=== PATIENT | female | born 1985 | race Caucasian/White ===

== ENCOUNTER 2018-08-20 13:47 | Inpatient (IN) ==
[2018-08-20] MEDS ORDERED: LIDOCAINE HCL 50 ML VIAL PERI PRN (14:13)
[2018-08-20] MEDS ORDERED: ONDANSETRON HCL/PF 2 MG/ML VIAL IV PRN (14:13)
[2018-08-20] MEDS ORDERED: PENICILLIN G POTASSIUM 5 MILLIONUNT in DEXTROSE 5 % IN WATER 100 ML IV ONE ×2 (14:13)
[2018-08-20] MEDS ORDERED: RINGER'S SOLUTION,LACTATED 1,000 ML IV ONE (14:13)
[2018-08-20] MEDS ORDERED: NALBUPHINE HCL 10 MG/ML AMPUL IV PRN ×2 (14:13)
[2018-08-20] MEDS ORDERED: RINGER'S SOLUTION,LACTATED 1,000 ML IV PRN (14:13)
--- NOTE | 2018-08-20 16:03 | HP ---
Chief Complaint - Chief Complaint Date of Service: 08/20/18 Time of Service: 16:01 Chief Complaint: Labor History of Present Illness: The patient presents to labor and delivery complaining of regular contractions. She denies vb or lof. Fetus is active. Medical History (Last Reviewed 05/19/18 @ 14:55 by Ernie Baldwin RN) Asthma Nausea Needle phobia and not yet delivered Onset Date: 02/16/18 Vegetarian diet [place] teeth extracted Onset Date: 2011 Family History: Family History (Last Reviewed 05/19/18 @ 14:55 by Ernie Baldwin RN) Grandmother Myocardial infarction Social History: Preferred Language Ghanaian (Last Updated 08/19/18 @ 08:50 by Martita Helm MD) No Social History Section defined Review Of Systems (GEN) - Review of Systems Misc: All systems neg except as marked Allergies/Adverse Reactions: Allergies Allergy/AdvReac Type Severity Reaction Status Date / Time No Known Drug Allergies Allergy Verified 08/20/18 13:51 Home Medications: HOME MEDICATIONS albuterol sulfate HFA 90 mcg/actuation aerosol inhaler See Rx Instructions IH Q6H PRN 04/15/18 [Last Taken Unknown] vitamin B12 500 mcg-folic acid 400 mcg tablet 1 tab PO DAILY 04/15/18 [Last Taken Unknown] Vits96/Iron Fum/Folic [ S] 1 tab PO DAILY 08/20/18 [Last Taken Unknown] Exam - Exam Vital Signs: Vital Signs - Last Taken Temp 36.5 C 08/20/18 15:03 Pulse 110 H 08/20/18 15:03 Resp 18 08/20/18 15:03 BP 124/77 08/20/18 15:03 Pulse Ox 100 08/20/18 15:03 Constitutional: Present: Alert, Oriented x3, Cooperative, No distress Respiratory: Present: chest non-tender, lungs clear, normal breath sounds Cardiovascular/Chest: Present: normal peripheral pulses, regular rate, rhythm, no murmur Abdomen: Present: soft, nontender, nondistended Extremity: Present: normal range of motion, non-tender, normal inspection, no calf tenderness, pedal edema Skin Exam: Present: normal color, warm/dry, no cyanosis Appearance: Present: appropriate appearance Eye contact: Present: cooperative Thoughts: Present: normal thought pattern Diagnostic Studies: Laboratory Results Blood Type A Negative 08/20/18 14:20 Antibody Screen Negative 08/20/18 14:20 Assessment/Plan - Narrative Narrative: 32 yo @ 37w 3d Admit for active labor. The patient has a history of short labors and has made cervical change GBS prophylaxis due to GBS positive status FHT is cat 1
[2018-08-20 17:38] LABS: Cocaine Ur Negative (NEGATIVE); Urine Barbiturate Negative (NEGATIVE); Urine Benzodiazepines Negative (NEGATIVE); Urine Opiates Negative (NEGATIVE); Urine PCP Negative (NEGATIVE); Urine THC Negative (NEGATIVE)
[2018-08-20] MEDS: PENICILLIN G POTASSIUM 2.5 MILLIONUNT in DEXTROSE 5 % IN WATER 100 ML IV SCH ×4 (18:31→23:13)
--- NOTE | 2018-08-20 18:40 | PN ---
Progess Note - Interim Date: 08/20/18 Time: 18:38 Narrative: 08/20/18 18:38 Pt reports her ctx are getting stronger and closer together and she has a history of short labors First dose of antibiotics in AROM for augmentation of labor, clear fluid cvx /-2 Anticipate
[2018-08-20] MEDS ORDERED: OXYTOCIN/DEXTROSE 5%-WATER 30 UNITS/500 ML BAG IV ONE ×2 (21:39→22:14)
[2018-08-20] MEDS ORDERED: GLYCERIN/WITCH HAZEL LEAF 40 APPL BOX TP PRN (22:14)
[2018-08-20] MEDS ORDERED: BENZOCAINE/MENTHOL 81 SPRAY CAN TP PRN (22:14)
[2018-08-20] MEDS ORDERED: BISACODYL 10 MG SUPP.RECT RC PRN (22:14)
[2018-08-20] MEDS ORDERED: diphenhydrAMINE HCL 25 MG CAPSULE PO PRN (22:14)
[2018-08-20] MEDS ORDERED: oxyCODONE HCL/ACETAMINOPHEN 1 TAB TABLET PO PRN ×2 (22:14)
[2018-08-20] MEDS ORDERED: HYDROCORTISONE 30 APPL TUBE TP PRN (22:14)
[2018-08-20] MEDS ORDERED: SENNOSIDES 8.6 MG TABLET PO PRN (22:14)
--- NOTE | 2018-08-20 22:20 | OR ---
Operative Report - Dictated Report Narrative: Date of delivery: 08/20/2018 Time of delivery: 2202 Gender: male weight: 3051 grams APGARS 9/9 The patient presented to labor and delivery in active labor. She was augmented with AROM and progressed to complete dilation. She delivered a viable male infant over an intact perineum. The baby had a compound presentation presenting vertex with one hand over the head. Delivery was in the RADHA presentation. Cord clamping was delayed for 60 seconds. The placenta was delivered by expression and appeared intact. A left periurethral laceration was noted which was hemostatic and thus not repaired. EBL: 100 mL Lacerations: left periurethral Complications: none Definition: * The number of deliveries resulting in a live the patient experienced prior to current hospitalization * The previous delivery of live twins or any live multiple gestation is considered one live event. *If primagravida or nulliparous is documented select zero for the number of previous live births. Live Births: 2
[2018-08-21] MEDS: IBUPROFEN 800 MG TABLET PO PRN ×3 (00:14→14:47)
[2018-08-21] MEDS: DOCUSATE SODIUM 100 MG CAPSULE PO SCH ×2 (08:02→20:56)
--- NOTE | 2018-08-21 11:21 | PN ---
Subjective - Date and Time Seen Date: 08/21/18 Time: 11:18 Subjective Narrative: Pt reports her vaginal bleeding is normal. No other complaints. Objective Objective Narrative: See vital signs - Review of Systems Generalized/Overall Review: Reports: No Symptoms Reported Misc: All systems neg except as marked - Vitals Vitals: Last Vital Signs Temp 36.6 C 08/21/18 07:41 Pulse 88 08/21/18 07:41 Resp 16 08/21/18 07:41 BP 114/82 08/21/18 07:41 Pulse Ox 100 08/21/18 07:41 - Exam Constitutional: Present: Alert, Oriented x3, Cooperative, No distress Cardiovascular/Chest: Present: regular rate, rhythm, no murmur Abdomen: Present: soft, nontender, nondistended - fundus is firm Extremity: Present: non-tender, no calf tenderness Skin Exam: Present: normal color, warm/dry, no cyanosis Appearance: Present: appropriate appearance Eye contact: Present: cooperative Thoughts: Present: normal thought pattern Assessment/Plan Plan Narrative: PPD 1 s/p Doing well PP tubal tomorrow Discharge tomorrow
[2018-08-21] MEDS: PENICILLIN G POTASSIUM 2.5 MILLIONUNT in DEXTROSE 5 % IN WATER 100 ML IV SCH ×4 (19:26→19:27)
[2018-08-22] MEDS ORDERED: RINGER'S SOLUTION,LACTATED 1,000 ML IV PRN (06:00)
[2018-08-22 06:44] VITALS: BP 120/79
--- NOTE | 2018-08-22 10:20 | PN ---
Subjective - Date and Time Seen Date: 08/22/18 Time: 10:17 Subjective Narrative: Pt reports her vaginal bleeding is normal. No other complaints. Objective Objective Narrative: See vital signs - Review of Systems Generalized/Overall Review: Reports: No Symptoms Reported Misc: All systems neg except as marked - Vitals Vitals: Last Vital Signs Temp 36.6 C 08/22/18 06:39 Pulse 92 08/22/18 06:39 Resp 18 08/22/18 06:39 BP 120/79 08/22/18 06:39 Pulse Ox 100 08/22/18 06:39 - Exam Constitutional: Present: Alert, Oriented x3, Cooperative, No distress Abdomen: Present: soft, nontender, nondistended - fundus is firm Extremity: Present: non-tender, normal inspection, no calf tenderness Skin Exam: Present: normal color, warm/dry, no cyanosis Appearance: Present: appropriate appearance Eye contact: Present: cooperative Thoughts: Present: normal thought pattern Assessment/Plan Plan Narrative: PPD 2 s/p Discharge home Unable to do the tubal ligation due to consent not signed. Pt to stop by the office this week to sign tubal consent
== END 2018-08-22 11:45 | disposition home or self-care (01) | DRG 807 ==
LOC: OBCLINIC 13:47 → OB 14:15
PROVIDERS: ADMIT Obstetrics & Gynecology; ATTEND Obstetrics & Gynecology
CPT/HCPCS: 59025; 80307; 86850; 86900; G0479